=== PATIENT | female | born 1945 | race Caucasian/White ===

== ENCOUNTER 2019-03-01 08:15 | Outpatient (CLI) | payer OTHER | END 2019-03-01 08:38 | disposition home or self-care (01) | LOC: MAMO-SONO 08:15 | DX: N60.11 Diffuse cystic mastopathy of right breast (principal); Z12.31 Encounter for screening mammogram for malignant neoplasm of breast; Z87.898 Personal history of other specified conditions ==

== ENCOUNTER 2019-03-16 07:14 | Outpatient (CLI) | payer OTHER | END 2019-03-16 07:22 | disposition home or self-care (01) | LOC: SONOGRAMA 07:14 | DX: N63.11 Unspecified lump in the right breast, upper outer quadrant (principal) ==

== ENCOUNTER 2019-07-18 10:04 | Outpatient (CLI) | payer OTHER | END 2019-07-18 10:08 | disposition home or self-care (01) | LOC: NUCLEAR 10:04 | DX: M81.0 Age-related osteoporosis without current pathological fracture (principal) ==

== ENCOUNTER 2020-03-05 07:47 | Outpatient (CLI) | payer OTHER | END 2020-03-05 08:12 | disposition home or self-care (01) | LOC: MAMO-SONO 07:47 | PROVIDERS: ATTEND Obstetrics & Gynecology | DX: Z12.31 Encounter for screening mammogram for malignant neoplasm of breast (principal); N60.11 Diffuse cystic mastopathy of right breast ==

== ENCOUNTER → 2020-07-03 | Outpatient (CLI) | payer OTHER | END | disposition home or self-care (01) | LOC: SONOGRAMA 10:04 → MAMO-SONO 10:15 | PROVIDERS: ATTEND Obstetrics & Gynecology | DX: R59.0 Localized enlarged lymph nodes (principal); G54.8 Other nerve root and plexus disorders ==

== ENCOUNTER 2021-03-06 09:35 | Outpatient (CLI) | payer OTHER | END 2021-03-06 09:46 | disposition home or self-care (01) | LOC: MAMO-SONO 09:35 | PROVIDERS: ATTEND Obstetrics & Gynecology | DX: N60.11 Diffuse cystic mastopathy of right breast (principal); Z12.31 Encounter for screening mammogram for malignant neoplasm of breast ==

== ENCOUNTER → 2021-07-22 | Outpatient (CLI) | payer OTHER | END | disposition home or self-care (01) | LOC: NUCLEAR 12:56 | PROVIDERS: ATTEND Obstetrics & Gynecology | DX: M81.0 Age-related osteoporosis without current pathological fracture (principal) ==

== ENCOUNTER 2021-11-20 08:18 | Outpatient (CLI) | payer OTHER | END 2021-11-20 08:27 | disposition home or self-care (01) | LOC: RAD 08:18 | PROVIDERS: ATTEND Physical Medicine & Rehabilitation | DX: M54.2 Cervicalgia (principal); S92.521 Displaced fracture of middle phalanx of right lesser toe(s); M79.671 Pain in right foot; M54.50 Low back pain, unspecified; M51.04 Intervertebral disc disorders with myelopathy, thoracic region ==

== ENCOUNTER → 2023-01-14 | Outpatient (CLI) | payer OTHER | END | disposition home or self-care (01) | LOC: NUCLEAR 09:16 | PROVIDERS: ATTEND Ophthalmology | DX: I11.9 Hypertensive heart disease without heart failure (principal) ==